=== PATIENT | female | born 1990 | race Caucasian/White ===

== ENCOUNTER 2021-01-11 21:30 | Emergency (ER) | payer OTHER ==
[2021-01-11] MEDS ORDERED: PENVEE K 500 M500 MG PO (22:04)
== END 2021-01-11 22:04 | disposition home or self-care (01) ==
LOC: ER1 21:30
DX: R68.84 Jaw pain (principal); F17.200 Nicotine dependence, unspecified, uncomplicated; Z90.89 Acquired absence of other organs
CPT/HCPCS: 99282

== ENCOUNTER 2021-04-19 02:08 | Emergency (ER) | payer OTHER ==
[~2021-04-19 02:08] MED LIST: PENVEE K 500 M500 MG PO
[2021-04-19] MEDS ORDERED: LODINE CAP 300300 MG PO (02:56)
[2021-04-19] MEDS ORDERED: AUGMENTIN 875-1 EACH PO (02:56)
== END 2021-04-19 03:00 | disposition home or self-care (01) ==
LOC: ER1 02:08
DX: H72.91 Unspecified perforation of tympanic membrane, right ear (principal); F17.210 Nicotine dependence, cigarettes, uncomplicated; Z90.89 Acquired absence of other organs
CPT/HCPCS: 99282

== ENCOUNTER 2021-12-09 00:33 | Emergency (ER) | payer OTHER ==
[~2021-12-09 00:33] MED LIST changes: +AUGMENTIN 875-1 EACH PO; +LODINE CAP 300300 MG PO
[2021-12-09] MEDS ORDERED: CLEOCIN HCL300 MG PO (04:29)
== END 2021-12-09 04:32 | disposition home or self-care (01) ==
LOC: ER1 00:33
DX: K02.9 Dental caries, unspecified (principal); R30.0 Dysuria; F17.200 Nicotine dependence, unspecified, uncomplicated
CPT/HCPCS: 81001; 99283

== ENCOUNTER 2022-02-21 05:12 | Emergency (ER) | payer OTHER ==
[~2022-02-21 05:12] MED LIST changes: +CLEOCIN HCL300 MG PO
[2022-02-21] MEDS ORDERED: AMOXICILLIN500 M1 PO (05:51)
[2022-02-21] MEDS ORDERED: NAPROSYN500 MG PO (05:51)
== END 2022-02-21 06:16 | disposition home or self-care (01) ==
LOC: ER1 05:12
DX: K05.00 Acute gingivitis, plaque induced (principal); K02.9 Dental caries, unspecified; E03.9 Hypothyroidism, unspecified
CPT/HCPCS: 99282